=== PATIENT | male | born 1995 | race Caucasian/White ===

== ENCOUNTER 2024-12-24 13:31 | Outpatient (CLI) | payer OTHER, SELFPAY ==
--- OUTSIDE RECORDS SUMMARY | 2024-03-17 11:30 | XMS_ITS ---
Author Organization [employer] [facility] [place] ([address]) Address [address] [place] [address] Care Team Providers Care Waste And Batting Waste Chopper Name Role Phone Igor Veloz MD Primary Care Provider Davi Downing [phone] REASON FOR VISIT [facility]One PFT Social History Sex Assigned At : Social History Observation Description Sex Assigned At Male Encounters Encounter Location Date Provider Diagnosis [facility] [address] [place] [address] 03/17/2024 Davi Mccormick Cough, unspecified R05.9 ; Shortness of breath R06.02 ; Wheezing R06.2 and Abnormal results of pulmonary function studies R94.2 Assessments Encounter Date Diagnosis (ICD Code) Assessment Notes Treatment Notes Treatment Clinical Notes Section Notes 03/17/2024 Cough, unspecified (ICD-10 - R05.9) 03/17/2024 Shortness of breath (ICD-10 - R06.02) 03/17/2024 Wheezing (ICD-10 - R06.2) 03/17/2024 Abnormal results of pulmonary function studies (ICD-10 - R94.2) Plan Of Treatment Next Appt Details Follow Up: 6-12 Months unles s otherwise directed by provider, Reason: [facility] PFT Provider Name:Leatha mosqueda, 12/25/2024 01:45:00 PM, [address] [place], [address], Progress Notes * Sonido LANDAVERDEDOB:[birth year] (29 yo M)Acc No.[id number]:03/17/2024 PFT Patient: Sonido THORNTON Provider: Hemant Mccormick MD :1995 A ge:29 Y S ex:Male Date:03/17/2024 Address:[address] [place], [place] [id number] Pcp:Igor Veloz MD Subjective: * Chief Complaints: * 1 . [facility] PFT. * Medical History: Objective: * Vitals: Assessment: * Assessment: 1. C ough, unspecified - R05.9 (Primary) 2 . S hortness of breath - R06.02? 3. W heezing - R06.2 4 . A bnormal results of pulmonary function studies - R94.2 Plan: * Treatment: * Follow Up: 6 -12 Months unless otherwise directed by provider (Reason: [facility]One PFT) * Billing Information: * Visit Code: * Procedure Codes: 53899 RESPIRATORY FLOW VOLUME LOOP. 33621 SPIROMETRY CHALLENGE. 94211 C02/MEMBANE DIFFUSE CAPACITY. 81524 PULM FUNCT TST PLETHYSMOGRAP. 47295 PULMONARY STRESS TESTING. A4617 Mouthpiece. * Electronic signature of Narciso Mccormick MD, FAAAAI on 12/25/2024 at 12:50 PM TUB MENDER Sign off status: Pending * Provider: Hemant Mccormick MD Date: 0 03/17/2024 Generated for Josr garcia/Cherri/eTransmitting on: 1 02/25/2024 12:50 PM TUB MENDER
--- OUTSIDE RECORDS SUMMARY | 2024-04-02 11:30 | XMS_ITS ---
Author Organization [employer] [facility] [place] ([address]) Address [address] [place] [address] Care Team Providers Care Health Nurse Name Role Phone Igor Veloz MD Primary Care Provider Unav[address]i [address] Unavailable [phone] Rodriguez Coto Unavailable [phone] REASON FOR VISIT Asthma follow-up. Noted some SOB with with workout. Using ZHANG prior to Taekwondo ACT = 25. Previously switched to Breztri with minimal difference and back on Trelelgy. ACT = 25, ARC follow-up, only taking meds prn with minimal symptoms since completing SCIT Medications Medication SIG (Take, Route, Frequency, Duration) Notes Start Date End Date Status Trelegy Ellipta 100-62.5-25 MCG/ACT 1 puff Inhalation Once a day; Duration: 90 days Active FLUTICASONE NASAL 50 mcg/inh 1 spray(s) intranasally BID Active NASAL WASHES N/A as directed intranasally as needed Active Nystatin 466486 UNIT/ML 4 ml orally 4 times a day; Duration: 7 day(s) 2021 Not-Taking PROAIR HFA CFC free 90 mcg/inh 2 puff(s) inhaled QID, prn Active Fluticasone Propionate 50 MCG/ACT 1 spray(s) intranasally BID Active Breztri Aerosphere 160 MCG-4.8 MCG-9 MCG/INH 2 PUFF(S) INHALED 2 TIMES A DAY; Duration: 30 DAYS *Please review and pick correct strength-formulat ion from EcoIntensean options. If intended option is not shown, discontinue and re-order from Quick Search* 08/01/2023 Not-Taking Trelegy Ellipta 100-62.5-25 MCG/ACT INHALE 1 PUFF ONCE DAILY FOR 90 DAYS; Duration: 90 Active Trelegy Ellipta 200 MCG-62.5 MCG-25 MCG/INH 1 PUFF(S) INHALED ONCE A DAY; Duration: 90 DAYS *Please review and pick correct strength-formulat ion from EcoIntensean options. If intended option is not shown, discontinue and re-order from Quick Search* Not-Taking Advair Diskus 500 MCG-50 MCG INHALE 1 DOSE BY MOUTH TWICE DAILY; Duration: 90 *Please review and pick correct strength-formulat ion from [employer]atch options. If intended option is not shown, discontinue and re-order from Quick Search* Not-Taking Albuterol Sulfate HFA 108 (90 Base) MCG/ACT 1 puff as needed Inhalation every 4 hrs Active Social History Sex Assigned At : Social History Observation Description Sex Assigned At Male Encounters Encounter Location Date Provider Diagnosis [address] [address] 04/02/2024 Rodriguez Coto Moderate persistent asthma, uncomplicated J45.40 ; Allergic rhinitis due to pollen J30.1 ; Other chronic allergic conjunctivitis H10.45 ; Allergic rhinitis due to animal (cat) (dog) hair and dander J30.81 and Other allergic rhinitis J30.89 Assessments Encounter Date Diagnosis (ICD Code) Assessment Notes Treatment Notes Treatment Clinical Notes Section Notes 04/02/2024 Moderate persistent asthma, uncomplicated (ICD-10 - J45.40) - Continues doing well on high-dose Trelegy. Unsure if perceives a difference but has no complaints. - Previously screened for biologics with normal IgE and AEC, excluding him from most biologic treatment options. - Subjectively has been doing fine. - Given continued restricted seen on spirometry and clear difference between subjective and objective date, previously referred to Dr. Cleveland but has yet to go. Given this, will plan to obtain baseline PFT. Consider pulm evalaution based on results If symptoms worsen, consider Tezspire - Encouraged ZHANG use for his cough and dyspnea prn. - using ZHANG prior to Taekwondo with benefit 04/02/2024 Allergic rhinitis due to pollen (ICD-10 - J30.1) Sonido clearly suffers from atopic disease based upon history and our previous skin testing, and he is currently doing well on our recommended treatment plan. Continue current medication regimen, prn nasal washes and allergen-specifi c avoidance measures. He completed 4+ years of monthly maintenance SCIT in April 2017. Consider restarting SCIT if symptoms worsen. Consdier increasing Flonase to BID if symptoms increase 04/02/2024 Other chronic allergic conjunctivitis (ICD-10 - H10.45) Continue allergen avoidance measures and oral/nasal medications. Also consider adding intraocular antihistamine/ma st cell stabilizer, PRN for refractory symptoms 04/02/2024 Allergic rhinitis due to animal (cat) (dog) hair and dander (ICD-10 - J30.81) Continue avoidance and meds 04/02/2024 Other allergic rhinitis (ICD-10 - J30.89) Continue avoidance and meds 04/02/2024 Other Plan Of Treatment Medication Medication Name Sig Start Date Stop Date Notes Trelegy Ellipta 100-62.5-25 MCG/ACT 1 puff Inhalation Once a day; Duration: 90 days FLUTICASONE NASAL 50 mcg/inh 1 spray(s) intranasally BID NASAL WASHES N/A as directed intranas ally as needed PROAIR HFA CFC free 90 mcg/inh 2 puff(s) inhaled QID, prn Treatment Notes Assessment Notes Moderate persistent asthma, uncomplicate d - Continues doing well on high-dose Trelegy. Unsure if perceives a difference but has no complaints. - Previously screened for biologics with normal IgE and AEC, excluding him from most biologic treatment options. - Subjectively has been doing fine. - Given continued restricted seen on spirometry and clear difference between subjective and objective date, previously referred to Dr. Cleveland but has yet to go. Given this, will plan to obtain baseline PFT. Consider pulm evalaution based on results If symptoms worsen, consider Tezspire - Encouraged ZHANG use for his cough and dyspnea prn. - using ZHANG prior to Taekwondo with benefit Allergic rhinitis due to pollen Sonido cl early suffers from atopic disease based upon history and our previous skin testing, and he is currently doing well on our recommended treatment plan. Continue current medication regimen, prn nasal washes and allergen-specific avoidance measures. He completed 4+ years of monthly maintenance SCIT in April 2017. Consider restarting SCIT if symptoms worsen. Consdier increasing Flonase to BID if symptoms increase Other chronic allergic conjunctivitis Continue allergen avoidance measures and oral/nasal medications. Also consider adding intraocular antihistamine/mast cell stabilizer, PRN for refractory symptoms Allergic rhinitis due to ani mal (cat) (dog) hair and dander Continue avoidance and meds Other allergic rhinitis Continue avoidan ce and meds Next Appt Details Follow Up: 4 Months, Reason: Evaluation and Management Provider Name:Leatha mosqueda, 12/25/2024 01:45:00 PM, [address] [place] [address], [address], Progress Notes * Sonido LANDAVERDEDOB:[birth year] (29 yo M)Acc No.[id number]:04/02/2024 Asthma F/U Patient: Tere Sonido JOSEPH Provider: Rossy Coto PA-C :1995 A ge:29 Y S ex:Male Date:04/02/2024 [facility] Pcp:Igor Veloz MD Subjective: * Chief Complaints: * 1 . Asthma follow-up. Noted some SOB with with workout. Using ZHANG prior to Taekwondo ACT = 25. Previously switched to Breztri with minimal difference and back on Trelelgy. ACT = 25. 2. ARC follow-up, only taking meds prn with minimal symptoms since completing SCIT. * HPI: A sta follow-up: Asthma Survey - Classification A sthma severity classification M oderate Persistent * Introduction: HPI: Caridad Landaverde, a 28-year-old male with allergies and asthma who returns today for interval evaluation and management. He is with his fiance for today's visit. His allergy symptoms remain well-controlled on no daily meds, just prn. Still using Flonase consistently. He finished up allergen immunotherapy in April 2017 after running out of allergy serum. He had reached his monthly maintenance program back in November 2012. We switched from Trelegy to Breztri previously yoseph quiles continued restriction seen on spirometry to asses benefit. He reprots no noted difference since doing so. Now back on Trelegy with ACT = 25. No interval lower airway issues noted. Only using ZHANG prior to [facility]. Previosuly refurred to pulm but never went. Otherwise he reports he is doing well. Today, he reports no fevers, chills, night sweats or other constitutional symptoms. * ROS: A LLERGY: Positive p er the HPI and history, otherwise unremarkable.? S PECIAL SENSES: Positve for i tching eyes. C ONSTITUTIONAL: Positive for i tching. E NT: Positive p er the HPI and history, otherwise unremarkable.? R ESPIRATORY: Positive for p er the HPI and history, otherwise unremarkable. O PHTHALMOLOGY: Positive for p er the HPI and history, otherwise unremarkable. E NDOCRINOLOGY: Positive for n one. C ARDIOLOGY: Positive for n one. G ASTROENTEROLOGY: Positive for c onstipation. U ROLOGY: Positive for f requent urination, voiding dysfunction. D ERMATOLOGY: Positive for n one. N EUROLOGY: Positive for d ifficulty concentrating. H EMATOLOGY/LYMPH: Positive for n one. M USCULOSKELETAL: Positive for j oint pain, low back pain. P SYCHOLOGY: Positive for n one. M FRANNIE REPRODUCTIVE: Positive for n one. A ll other review of systems per the HPI and history, otherwise unremarkable. * Medical History: * Medications: T aking PROAIR HFA CFC free 90 mcg/inh aerosol 2 puff(s) inhaled QID, prn , Taking FLUTICASONE NASAL 50 mcg/inh spray 1 spray(s) intranasally BID , Taking NASAL WASHES N/A 1 quart of sterilized tap water or distilled water, 1 tsp NaCl, 1 pinch of baking soda as directed intranasally as needed , Taking Trelegy Ellipta 100-62.5-25 MCG/ACT Aerosol Powder Breath Activated 1 puff Inhalation Once a day , Taking Albuterol Sulfate HFA 108 (90 Base) MCG/ACT Aerosol Solution 1 puff as needed Inhalation every 4 hrs , Taking Fluticasone Propionate 50 MCG/ACT Suspension 1 spray(s) intranasally BID , Taking Trelegy Ellipta 100-62.5-25 MCG/ACT Aerosol Powder Breath Activated INHALE 1 PUFF ONCE DAILY FOR 90 DAYS , Not-Taking/PRN Breztri Aerosphere 160 MCG-4.8 MCG-9 MCG/INH AEROSOL 2 PUFF(S) INHALED 2 TIMES A DAY , Notes to Pharmacist: *Please review and pick correct strength-formulation from EcoIntensean options. If intended option is not shown, discontinue and re-order from Quick Search*, Not-Taking/PRN Trelegy Ellipta 200 MCG-62.5 MCG-25 MCG/INH POWDER 1 PUFF(S) INHALED ONCE A DAY , Notes to Pharmacist: *Please review and pick correct strength-formulation from EcoIntensean options. If intended option is not shown, discontinue and re-order from Quick Search*, Not-Taking/PRN Advair Diskus 500 MCG-50 MCG POWDER INHALE 1 DOSE BY MOUTH TWICE DAILY , Notes to Pharmacist: *Please review and pick correct strength-formulation from EcoIntensean options. If intended option is not shown, discontinue and re-order from Quick Search*, Not-Taking/PRN Nystatin 057708 UNIT/ML Suspension 4 ml orally 4 times a day Objective: * Vitals: * Examination: G eneral examination: General appearance: p leasant, well-developed, well-nourished, male, in no apparent distress, speaking in full sentences, with age appropriate activity. HEENT: p upils equal, round, and reactive to light and accommodation, conjunctiva are normal bilaterally, no tenderness to palpation of the sinuses, TMs without evidence of acute infection, chronic TM scarring is present, turbinates 1+ swollen and pale inferiorly bilaterally, no polyps noted, no septal perforation, posterior oropharynx is clear without exudates, tonsils are surgically absent, no tongue swelling, and uvula is midline. Oral cavity: n ormal. Neck, thyroid : s upple, non-tender, no anterior cervical lymphadenopathy. Breasts : n ot performed. Heart: r egular rhythm, S1-S2, no murmurs, no rubs, no gallops. Lungs: c lear to auscultation and percussion in all lung calix, no wheezes or crackles. Abdomen: s oft, NT/ND, normal active bowel sounds. Neurologic exam: u nremarkable. Skin: n ormal, no rash, dermatographism, urticaria, angioedema. Peripheral pulses: n ormal (2+) bilaterally. Back: n ormal. Extremities: n ormal ROM, no clubbing, no cyanosis, no edema. Genitalia: n ot performed. Assessment: * Assessment: 1. M oderate persistent asthma, uncomplicated - J45.40 (Primary) 2 . A llergic rhinitis due to pollen - J30.1 3 . O ther chronic allergic conjunctivitis - H10.45 4 . A llergic rhinitis due to animal (cat) (dog) hair and dander - J30.81 5. O ther allergic rhinitis - J30.89 Plan: * Treatment: 2. A llergic rhinitis due to pollen Increase FLUTICASONE NASAL spray, 50 mcg/inh, 1 spray(s), intranasally, BID; C ontinue NASAL WASHES 1 quart of sterilized tap water or distilled water, 1 tsp NaCl, 1 pinch of baking soda, N/A, as directed, intranasally, as needed. Notes:Sonido clearly suffers from atopic disease based upon history and our previous skin testing, and he is currently doing well on our recommended treatment plan. Continue current medication regimen, prn nasal washes and allergen-specific avoidance measures. He completed 4+ years of monthly maintenance SCIT in April 2017. Consider restarting SCIT if symptoms worsen. Consdier increasing Flonase to BID if symptoms increase 3. O ther chronic allergic conjunctivitis Notes:Continue allergen avoidance measures and oral/nasal medications. Also consider adding intraocular antihistamine/mast cell stabilizer, PRN for refractory symptoms 4. A llergic rhinitis due to animal (cat) (dog) hair and dander Notes:Continue avoidance and meds 5. O ther allergic rhinitis Notes:Continue avoidance and meds * Procedure Codes: 9 6160 PT-FOCUSED HLTH RISK ASSMT, G8427 DOC MEDS VERIFIED W/[place], [address] Derrick Coto - Incident-to, G9521 TOT # ED VSTS & IP HOSP<2 PAST 12 M * Preventive Medicine: Counseling: D iet a s tolerated. E xercise C ontinue activity as usual. M edication instruction: W atch for side effects of prescribed medications, [place] teeth or rinse out mouth after the use of oral, inhaled steroids to prevent oral thrush, Use 2 puffs of ZHANG with spacer prior to exercise and environmental exposures known to cause wheezing. E ducation: O ur staff spent an additional 30 minutes in direct contact with the patient educating them on their current diagnoses and proper treatment and prevention of symptoms and the proper use of medications, ASTHMA EDUCATION:, Our staff discussed pulmonary function testing and results with the patient/family, Our staff updated the patient's asthma action plan. E ducation 2: O ur staff discussed the appropriate allergen avoidance measures and medication utilization including upper airway hygiene with nasal washes given the patient's clinical status and diagnoses. P atient education material sent to portal? Y es C are goal follow up plan BMI management provided Y es Above Normal BMI Follow-up D ietary management education, guidance, and counseling B P Management: FIRST HYPERTENSIVE BP READING FOLLOW-UP PLAN: F ollow-up 1 month REFERRAL TO ALTERNATIVE / PRIMARY CARE PROVIDER: John sharma to general practitioner * Follow Up: 4 Months (Reason: Evaluation and Management) * Billing Information: * Visit Code: 23826 Office Visit, Est Pt., Level 4. Modifiers: 25 * Procedure Codes: 12556 PT-FOCUSED HLTH RISK ASSMT. G8427 DOC MEDS VERIFIED W/[place]. [address] Derrick Coto - Incident-to. G9521 TOT # ED VSTS & IP HOSP<2 PAST 12 M. * Electronic signature of Derrick Coto PA-C on 12/25/2024 at 12:51 PM DRY TRANSFER MAN Sign off status: Pending * Provider: Rossy Coto PA-C Date: 0 04/02/2024 Generated for Josr garcia/Cherri/eTransmitting on: 1 02/25/2024 12:51 PM DRY TRANSFER MAN History and Physical Notes * HPI (History of Present Illness) Category Sub-Category Detail Notes Category Not es *Introduction HPI: Sonido Landaverde, a 28-year-old male with allergies and asthma who returns today for interval evaluation and management. He is with his fiance for today's visit. His allergy symptoms remain well-controlled on no daily meds, just prn. Still using Flonase consistently. He finished up allergen immunotherapy in April 2017 after running out of allergy serum. He had reached his monthly maintenance program back in November 2012. We switched from Trelegy to Breztri previously given continued restriction seen on spirometry to asses benefit. He reprots no noted difference since doing so. Now back on Trelegy with ACT = 25. No interval lower airway issues noted. Only using ZHANG prior to Taekwondo. Previosuly refurred to pulm but never went. Otherwise he reports he is doing well. Today, he reports no fevers, chills, night sweats or other constitutional symptoms Asthma follow-up Asthma Survey - Classification Coughing, wheezing, shortness of breath or tightness in the chest during the day: Twice a week or less Asthma severity classification: Moderate Persistent Examination Category Sub-Category Detail Notes Category Not es General examination HEENT: pupils equal , round, and reactive to light and accommodation, conjunctiva are normal bilaterally, no tenderness to palpation of the sinuses, TMs without evidence of acute infection, chronic TM scarring is present, turbinates 1+ swollen and pale inferiorly bilaterally, no polyps noted, no septal perforation, posterior oropharynx is clear without exudates, tonsils are surgically absent, no tongue swelling, and uvula is midline Neck, thyroid : supple, non-tender, no anterior cervical lymphadenopathy Heart: regular rhythm, S1-S 2, no murmurs, no rubs, no gallops Lungs: clear to auscultatio n and percussion in all lung calix, no wheezes or crackles Abdomen: soft, NT/ND, normal active bowel sounds Extremities: normal ROM, no clubb ing, no cyanosis, no edema General appearance: pleasant, well-devel oped, well-nourished, male, in no apparent distress, speaking in full sentences, with age appropriate activity Skin: normal, no rash, carlos matographism, urticaria, angioedema Neurologic exam: unremarkable Oral cavity: normal Breasts : not performed Peripheral pulses: normal (2+) bilatera lly Back: normal Genitalia: not performed
--- OUTSIDE RECORDS SUMMARY | 2024-04-21 11:30 | XMS_ITS ---
Author Organization [employer] [facility] [employer] [place] ([address]) Address [address] [place] [address] Care Team Providers Care Aircraft Pneudraulic Systems Mechanic Name Role Phone Igor Veloz MD Primary Care Provider Davi Downing [phone] REASON FOR VISIT PulmOne PFT Social History Sex Assigned At : Social History Observation Description Sex Assigned At Male Encounters Encounter Location Date Provider Diagnosis [facility] [address] [place] [address] 04/21/2024 Davi Mccormick Cough, unspecified R05.9 ; Shortness of breath R06.02 ; Wheezing R06.2 and Abnormal results of pulmonary function studies R94.2 Assessments Encounter Date Diagnosis (ICD Code) Assessment Notes Treatment Notes Treatment Clinical Notes Section Notes 04/21/2024 Cough, unspecified (ICD-10 - R05.9) 04/21/2024 Shortness of breath (ICD-10 - R06.02) 04/21/2024 Wheezing (ICD-10 - R06.2) 04/21/2024 Abnormal results of pulmonary function studies (ICD-10 - R94.2) Plan Of Treatment Next Appt Details Follow Up: 6-12 Months unles s otherwise directed by provider, Reason: PulmOne PFT Provider Name:Leatha mosqueda, 12/25/2024 01:45:00 PM, [address] [place], [address], Progress Notes * Sonido LANDAVERDEDOB:[birth year] (29 yo M)Acc No.[id number]:04/21/2024 PFT Patient: Sonido THORNTON Provider: Hemant Mccormick MD :1995 A ge:29 Y S ex:Male Date:04/21/2024 Address:[address] [place], [place] [id number] Pcp:Igor Veloz MD Subjective: * Chief Complaints: [...] Information: * Visit Code: * Procedure Codes: 69965 RESPIRATORY FLOW VOLUME LOOP. 74883 SPIROMETRY CHALLENGE. 28523 C02/MEMBANE DIFFUSE CAPACITY. 68764 PULM FUNCT TST PLETHYSMOGRAP. 16034 PULMONARY STRESS TESTING. A4617 Mouthpiece. * Electronic signature of Narciso Mccormick MD, FAAAAI on 12/25/2024 at 12:51 PM CUSTODIAL WORKER Sign off status: Pending * Provider: Hemant Mccormick MD Date: 0 04/21/2024 Generated for Josr garcia/Cherri/eTransmitting on: 1 02/25/2024 12:51 PM CUSTODIAL WORKER
--- OUTSIDE RECORDS SUMMARY | 2024-05-05 11:30 | XMS_ITS ---
Author Organization [employer] [facility] [place] ([address]) Address [address] [place] [address] Care Team Providers Care Supervisor Brine Name Role Phone Igor Veloz MD Primary Care Provider Davi Downing [phone] REASON FOR VISIT PulmOne PFT Social History Sex Assigned At : Social History Observation Description Sex Assigned At Male Encounters Encounter Location Date Provider Diagnosis [facility] [address] [place] [address] 05/05/2024 Daiv Mccormick Cough, unspecified R05.9 ; Shortness of breath R06.02 ; Wheezing R06.2 and Abnormal results of pulmonary function studies R94.2 Assessments Encounter Date Diagnosis (ICD Code) Assessment Notes Treatment Notes Treatment Clinical Notes Section Notes 05/05/2024 Cough, unspecified (ICD-10 - R05.9) 05/05/2024 Shortness of breath (ICD-10 - R06.02) 05/05/2024 Wheezing (ICD-10 - R06.2) 05/05/2024 Abnormal results of pulmonary function studies (ICD-10 - R94.2) Plan Of Treatment Next Appt Details Follow Up: 6-12 Months unles s otherwise directed by provider, Reason: [facility]One PFT Provider Name:Leatha mosqueda, 12/25/2024 01:45:00 PM, [address] [place], [address], Progress Notes * Sonido LANDAVERDEDOB:[birth year] (29 yo M)Acc No.[id number]:05/05/2024 PFT Patient: Sonido THORNTON Provider: Hemant Mccormick MD :1995 A ge:29 Y S ex:Male Date:05/05/2024 Address:[address] [place], [place] [id number] Pcp:Igor Veloz MD Subjective: * Chief Complaints: [...] Information: * Visit Code: * Procedure Codes: 12750 RESPIRATORY FLOW VOLUME LOOP. 29806 SPIROMETRY CHALLENGE. 42374 C02/MEMBANE DIFFUSE CAPACITY. 32274 PULM FUNCT TST PLETHYSMOGRAP. 25564 PULMONARY STRESS TESTING. A4617 Mouthpiece. * Electronic signature of Narciso Mccormick MD, FAAAAI on 12/25/2024 at 12:51 PM MANAGER DATA Sign off status: Pending * Provider: Hemant Mccormick MD Date: 0 05/05/2024 Generated for Josr garcia/Cherri/eTransmitting on: 1 02/25/2024 12:51 PM MANAGER DATA
--- OUTSIDE RECORDS SUMMARY | 2024-05-14 11:30 | XMS_ITS ---
Author Organization [employer] [facility] [place] ([address]) Address [address] [place] [address] Care Team Providers Care Mortgage Counselor Name Role Phone Igor Veloz MD Primary Care Provider UnavailDavi Way Unavailable [phone] Rodriguez Coto Unavailable [phone] REASON FOR VISIT Asthma follow-up. Noted some SOB with with workout. Using ZHANG prior to Taekwondo ACT = 25. Previously switched to Breztri with minimal difference and back on Trelelgy. ACT = 25, ARC follow-up, only taking meds prn with minimal symptoms since completing SCIT Medications Medication SIG (Take, Route, Frequency, Duration) Notes Start Date End Date Status NASAL WASHES N/A as directed intranasally as needed Active Trelegy Ellipta 100-62.5-25 MCG/ACT 1 puff Inhalation Once a day; Duration: 90 days Active Albuterol Sulfate HFA 108 (90 Base) MCG/ACT 1 puff as needed Inhalation every 4 hrs Active Fluticasone Propionate 50 MCG/ACT 1 spray(s) intranasally BID Active Breztri Aerosphere 160 MCG-4.8 MCG-9 MCG/INH 2 PUFF(S) INHALED 2 TIMES A DAY; Duration: 30 DAYS *Please review and pick correct strength-formulat ion from Medispan options. If intended option is not shown, discontinue and re-order from Quick Search* 08/01/2023 Not-Taking Trelegy Ellipta 200 MCG-62.5 MCG-25 MCG/INH 1 PUFF(S) INHALED ONCE A DAY; Duration: 90 DAYS *Please review and pick correct strength-formulat ion from Transperaan options. If intended option is not shown, discontinue and re-order from Quick Search* Not-Taking Advair Diskus 500 MCG-50 MCG INHALE 1 DOSE BY MOUTH TWICE DAILY; Duration: 90 *Please review and pick correct strength-formulat ion from Transperaan options. If intended option is not shown, discontinue and re-order from Quick Search* Not-Taking PROAIR HFA CFC free 90 mcg/inh 2 puff(s) inhaled QID, prn Active FLUTICASONE NASAL 50 mcg/inh 1 spray(s) intranasally BID Active Nystatin 943297 UNIT/ML 4 ml orally 4 times a day; Duration: 7 day(s) 2021 Not-Taking Trelegy Ellipta 100-62.5-25 MCG/ACT INHALE 1 PUFF ONCE DAILY FOR 90 DAYS; Duration: 90 Active Social History Sex Assigned At : Social History Observation Description Sex Assigned At Male Encounters Encounter Location Date Provider Diagnosis [address] [address] 05/14/2024 Rodriguez Coto Moderate persistent asthma, uncomplicated J45.40 ; Allergic rhinitis due to pollen J30.1 ; Other chronic allergic conjunctivitis H10.45 ; Allergic rhinitis due to animal (cat) (dog) hair and dander J30.81 and Other allergic rhinitis J30.89 Assessments Encounter Date Diagnosis (ICD Code) Assessment Notes Treatment Notes Treatment Clinical Notes Section Notes 05/14/2024 Moderate persistent asthma, uncomplicated (ICD-10 - J45.40) [...] Given this, will plan to obtain baseline PFT; scheduled for next week. Consider pulm evalaution based on results If symptoms worsen, consider Tezspire - Encouraged ZHANG use for his cough and dyspnea prn. - Continue using ZHANG prior to Taekwondo with benefit 05/14/2024 Allergic rhinitis due to pollen (ICD-10 - [...] increasing Flonase to BID if symptoms increase 05/14/2024 Other chronic allergic conjunctivitis (ICD-10 - H10.45) Continue allergen avoidance measures and oral/nasal medications. Also consider adding intraocular antihistamine/ma st cell stabilizer, PRN for refractory symptoms 05/14/2024 Allergic rhinitis due to animal (cat) (dog) hair and dander (ICD-10 - J30.81) Continue avoidance and meds 05/14/2024 Other allergic rhinitis (ICD-10 - J30.89) Continue avoidance and meds 05/14/2024 Other Plan Of Treatment Medication Medication Name Sig Start Date Stop Date Notes NASAL WASHES N/A as directed intranas ally as needed Trelegy Ellipta 100-62.5-25 MCG/ACT 1 puff Inhalation Once a day; Duration: 90 days PROAIR HFA CFC free 90 mcg/inh 2 puff(s) inhaled QID, prn FLUTICASONE NASAL 50 mcg/inh 1 spray(s) intranasally BID Treatment Notes Assessment Notes Moderate persistent asthma, [...] Given this, will plan to obtain baseline PFT; scheduled for next week. Consider pulm evalaution based on results If symptoms worsen, consider Tezspire - Encouraged ZHANG use for his cough and dyspnea prn. - Continue using ZHANG prior to Taekwondo with benefit [...] Management Provider Name:Leatha mosqueda, 12/25/2024 01:45:00 PM, [address] [place] [address], [address], Progress Notes * Sonido LANDAVERDEDOB:[birth year] (29 yo M)Acc No.[id number]:05/14/2024 Asthma F/U Patient: Sonido THORNTON Provider: Rossy Coto PA-C :1995 A ge:29 Y S ex:Male Date:05/14/2024 Address:[address] [place], [place] [address] Pcp:Igor Veloz MD Subjective: * Chief Complaints: [...] issues noted. Only using ZHANG prior to T rafael. Previosuly refurred to pulm but never went. [...] * Medical History: * Medications: T aking Albuterol Sulfate HFA 108 (90 Base) MCG/ACT Aerosol Solution 1 puff as needed Inhalation every 4 hrs , Taking Fluticasone Propionate 50 MCG/ACT Suspension 1 spray(s) intranasally BID , Taking Trelegy Ellipta 100-62.5-25 MCG/ACT Aerosol Powder Breath Activated INHALE 1 PUFF ONCE DAILY FOR 90 DAYS , Taking PROAIR HFA CFC free 90 mcg/inh aerosol [...] 1 puff Inhalation Once a day , Not-Taking/PRN Breztri Aerosphere 160 MCG-4.8 MCG-9 MCG/INH AEROSOL 2 PUFF(S) INHALED 2 TIMES A DAY , Notes to Pharmacist: *Please review and pick correct strength-formulation from Transperaan options. If intended option is not shown, discontinue and re-order from Quick Search*, Not-Taking/PRN Trelegy Ellipta 200 MCG-62.5 MCG-25 MCG/INH POWDER 1 PUFF(S) INHALED ONCE A DAY , Notes to Pharmacist: *Please review and pick correct strength-formulation from Transperaan options. If intended option is not shown, discontinue and re-order from Quick Search*, Not-Taking/PRN Advair Diskus 500 MCG-50 MCG POWDER INHALE 1 DOSE BY MOUTH TWICE DAILY , Notes to Pharmacist: *Please review and pick correct strength-formulation from Transperaan options. If intended option is not shown, discontinue and re-order from Quick Search*, Not-Taking/PRN Nystatin 705796 UNIT/ML Suspension 4 ml orally 4 times [...] G8427 DOC MEDS VERIFIED W/[place], [address] Derrick Coto - Incident-to, G9521 TOT # ED VSTS & IP HOSP<2 PAST 12 M * Preventive Medicine: Counseling: D iet a s tolerated. E xercise C ontinue activity as usual. M edication instruction: W atch for side effects of prescribed medications, Mallard teeth or rinse out mouth after the [...] Management) * Billing Information: * Visit Code: 24280 Office Visit, Est Pt., Level 4. Modifiers: 25 * Procedure Codes: 93624 PT-FOCUSED HLTH RISK ASSMT. G8427 DOC MEDS VERIFIED W/[place]. [address] Derrick Coto - Incident-to. G9521 TOT # ED VSTS & IP HOSP<2 PAST 12 M. * Electronic signature of Derrick Coto PA-C on 12/25/2024 at 12:51 PM SILK SCREEN PROCESSOR Sign off status: Pending * Provider: Rossy Coto PA-C Date: 0 05/14/2024 Generated for Josr garcia/Cherri/Alejandro on: 1 02/25/2024 12:51 PM SILK SCREEN PROCESSOR History and Physical Notes * HPI (History [...]
--- OUTSIDE RECORDS SUMMARY | 2024-05-19 11:30 | XMS_ITS ---
Author Organization [facility] [place] ([address]) Address [address] [place] [address] Care Team Providers Care Shot Dropper Name Role Phone Igor Veloz MD Primary Care Provider Davi Downing Unavailable [phone] REASON FOR VISIT [facility]mOne PFT Medications Medication SIG (Take, Route, Frequency, Duration) Notes Start Date End Date Status Trelegy Ellipta 100-62.5-25 MCG/ACT 1 puff Inhalation Once a day; Duration: 90 days Active FLUTICASONE NASAL 50 mcg/inh 1 spray(s) intranasally BID Active NASAL WASHES N/A as directed intranasally as needed Active Nystatin 806469 UNIT/ML 4 ml orally 4 times a day; Duration: 7 day(s) 2021 Not-Taking PROAIR HFA CFC free 90 mcg/inh 2 puff(s) inhaled QID, prn Active Trelegy Ellipta 200 MCG-62.5 MCG-25 MCG/INH 1 PUFF(S) INHALED ONCE A DAY; Duration: 90 DAYS *Please review and pick correct strength-formulat ion from SparkWordsan options. If intended option is not shown, discontinue and re-order from Quick Search* Not-Taking Advair Diskus 500 MCG-50 MCG INHALE 1 DOSE BY MOUTH TWICE DAILY; Duration: 90 *Please review and pick correct strength-formulat ion from SparkWordsan options. If intended option is not shown, discontinue and re-order from Quick Search* Not-Taking Trelegy Ellipta 100-62.5-25 MCG/ACT INHALE 1 PUFF ONCE DAILY FOR 90 DAYS; Duration: 90 Active Fluticasone Propionate 50 MCG/ACT 1 spray(s) intranasally BID Active Breztri Aerosphere 160 MCG-4.8 MCG-9 MCG/INH 2 PUFF(S) INHALED 2 TIMES A DAY; Duration: 30 DAYS *Please review and pick correct strength-formulat ion from [employer] Pharmaceutical[employer]pan options. If intended option is not shown, discontinue and re-order from Quick Search* 08/01/2023 Not-Taking Albuterol Sulfate HFA 108 (90 Base) MCG/ACT 1 puff as needed Inhalation every 4 hrs Active Social History Sex Assigned At : Social History Observation Description Sex Assigned At Male Encounters Encounter Location Date Provider Diagnosis [facility] [address] [place] [address] 05/19/2024 Davi Mccormick Cough, unspecified R05.9 ; Shortness of breath R06.02 ; Wheezing R06.2 and Abnormal results of pulmonary function studies R94.2 Assessments Encounter Date Diagnosis (ICD Code) Assessment Notes Treatment Notes Treatment Clinical Notes Section Notes 05/19/2024 Cough, unspecified (ICD-10 - R05.9) 05/19/2024 Shortness of breath (ICD-10 - R06.02) 05/19/2024 Wheezing (ICD-10 - R06.2) 05/19/2024 Abnormal results of pulmonary function studies (ICD-10 - R94.2) Plan Of Treatment Next Appt Details Follow Up: 6-12 Months unles s otherwise directed by provider, Reason: PulmOne PFT Provider Name:Leatha mosqueda, 12/25/2024 01:45:00 PM, [address] [place], [address], Progress Notes * Sonido LANDAVERDEDOB:[birth year] (29 yo M)Acc No.[id number]:05/19/2024 PFT Patient: Sonido TOHRNTON Provider: Hemant Mccormick MD :1995 A ge:29 Y S ex:Male Date:05/19/2024 Address:[facility] Pcp:Igor Veloz MD Subjective: * Chief Complaints: * 1 . PulmOne PFT. * Medical History: * Medications: T aking [...] *Please review and pick correct strength-formulation from Medispan options. If intended option is not shown, discontinue and re-order from Quick Search*, Not-Taking/PRN Trelegy Ellipta 200 MCG-62.5 MCG-25 MCG/INH POWDER 1 PUFF(S) INHALED ONCE A DAY , Notes to Pharmacist: *Please review and pick correct strength-formulation from Medispan options. If intended option is not shown, discontinue and re-order from Quick Search*, Not-Taking/PRN Advair Diskus 500 MCG-50 MCG POWDER INHALE 1 DOSE BY MOUTH TWICE DAILY , Notes to Pharmacist: *Please review and pick correct strength-formulation from Medispan options. If intended option is not shown, discontinue and re-order from Quick Search*, Not-Taking/PRN Nystatin 242873 UNIT/ML Suspension 4 ml orally 4 times a day Objective: * Vitals: Assessment: * Assessment: 1. C ough, unspecified - R05.9 (Primary) 2 . S hortness of breath - R06.02? 3. W heezing - R06.2 4 . A bnormal results of pulmonary function studies - R94.2 Plan: * Treatment: * Follow Up: 6 -12 Months unless otherwise directed by provider (Reason: PulmOne PFT) * Billing Information: * Visit Code: * Procedure Codes: 66903 RESPIRATORY FLOW VOLUME LOOP. 20354 SPIROMETRY CHALLENGE. 32125 C02/MEMBANE DIFFUSE CAPACITY. 17325 PULM FUNCT TST PLETHYSMOGRAP. 30066 PULMONARY STRESS TESTING. A4617 Mouthpiece. * Electronic signature of Patjaylin Mccormick MD, FAAAAI on 12/25/2024 at 12:51 PM LANDSCAPE ARCHITECT AND PLANNER Sign off status: Pending * Provider: Hemant Mccormick MD Date: 0 05/19/2024 Generated for Josr garcia/Cherri/Lesleeitting on: 1 02/25/2024 12:51 PM LANDSCAPE ARCHITECT AND PLANNER
--- OUTSIDE RECORDS SUMMARY | 2024-12-25 12:51 | XMS_ITS | Clinical Summary ---
Author Organization [facility] Address [address] [place] [address] Phone Care Team Providers Care Press Hand Name Role Phone Unavailable Primary Care Provider Unavailabl e Social History Tobacco Use Types Packs/Day Years Used Date Smoking Tobacco: Never Assessed Sex and Gender Information Value Date Recorded Sex Assigned at Not on file Legal Sex Male 10:34 PM CLIENT CARE REPRESENTATIVE Gender Identity Not on file Sexual Orientation Not on file Plan of Treatment Health Maintenance Due Date Last Done Comments Hepatitis C Virus (HCV) Screening 1995 Influenza Immunization (#1) 2024 10/0 03/2019, 01/06/2019, 01/17/2017, Additional history exists SARS-COV-2 Immunization ( season) 2024 06/08/2020, 05/18/2020 Respiratory Syncytial Virus (RSV) Immunization (Adult) (1 - 1-dose 75+ series) 01/19/2068 Hepatitis B Immunization Completed 994, 1995, 1995 Human Papillomavirus (HPV) Immunization Completed 06/29/2010, 11/24/2009, 09/24/2009 Pneumococcal Immunization Combined Aged Out 12/07/2016 No longer eligible based on patient's age to complete this topic DTaP/Tdap/Td Immunization Discontinued 2018, 09/14/2005, 08/20/1998, Additional history exists TdaP Immunization Completed 08/07/2018, 09/14/2005 Meningococcal Immunization (ACWY) Aged Out No longer eligible based on patient's age to complete this topic Rotavirus Immunization Aged Out No lo nger eligible based on patient's age to complete this topic
--- OUTSIDE RECORDS SUMMARY | 2024-12-25 12:51 | XMS_ITS | Clinical Summary ---
Author Organization [facility] Address [address] [place] [address] Care Team Providers Care Wagon Winder Name Role Phone Igor Veloz MD Primary Care Provider [phone] Allergies Active Allergy Reactions Criticality Noted Date Comments Albuterol Stomach upset Low 07/28/2018 Stomach/GI Upset Amoxicillin Amoxicillin-Pot Clavulanate Cefpodoxime Seizures,Unknown High 07/28/2018 Seizure Clavulanic Acid Rash Medium 07/28/2018 Rash Erythromycin Rash Medium 07/28/2018 Rash Erythromycin-Sulfisoxazole Rash Medium 3 Montelukast Unknown 03/16/2022 Sulfamethoxazole-Trimethop rim Sulfisoxazole Rash Medium 07/28/2018 Rash Medications albuterol HFA (ProAir HFA) 90 mcg/actuation inhaler 2 puff(s) Active ARIPiprazole (ABILIFY) 5 mg tablet Take 1 tablet (5 mg total) by mouth daily for 30 days 06/04/2022 Active atomoxetine (STRATTERA) 100 mg capsule TAKE 1 CAPSULE BY MOUTH ONCE DAILY IN THE MORNING FOR 30 DAYS 05/27/2022 Active escitalopram (LEXAPRO) 20 mg tablet Take 1 tablet (20 mg total) by mouth daily for 30 days 05/27/2022 Active fluticasone propion-salmete roL (Advair Diskus) 500-50 mcg/dose diskus inhaler INHALE 1 DOSE BY MOUTH TWICE DAILY Active fluticasone propionate (FLONASE) 50 mcg/actuation nasal spray daily Active fluticasone-ume clidin-vilanter (Trelegy Ellipta) 200-62.5-25 mcg inhaler daily Active metoprolol XL (TOPROL-XL) 50 mg extended release tablet TAKE 1 & 1/2 (ONE & ONE-HALF) TABLETS BY MOUTH ONCE DAILY IN THE EVENING 06/26/2022 Active nystatin 100,000 unit/mL suspension every 6 hours 2021 Active Active Problems Problem Noted Date Diagnosed Date Conductive hearing loss, bilateral 07/11/2022 Bilateral impacted cerumen 07/11/2022 Acute contact otitis externa of both ears 2022 Abnormal blood chemistry level 02/10/2011 Blood in urine 02/10/2011 Increased frequency of urination 12/01/2010 Urge incontinence of urine 12/01/2010 Surgical History Surgery Date Site/Laterality Comments MYRINGOTOMY W/ TUBES 1993 - 02/18/1994 EYE MUSCLE SURGERY 02/19/1994 - 02/18/1995 Left EYE MUSCLE SURGERY 02/19/1995 - 02/19/1996 Right TONSILLECTOMY/ADENOIDECTOMY 02/19/1995 - 02/19/1996 Bila teral Medical History Medical History Date Comments Ear problems Allergic rhinitis Asthma Anxiety Hypertension Depression Family History Medical History Relation Name Comments Cancer Maternal Grandfather Allergies Maternal Grandmother Cancer Maternal Grandmother Cancer Paternal Grandfather Cancer Paternal Grandmother Relation Name Status Comments Maternal Grandfather Maternal Grandmother Paternal Grandfather Paternal Grandmother Social History Tobacco Use Types Packs/Day Years Used Date Smoking Tobacco: Never Smokeless Tobacco: Never Tobacco Cessation:Counseling Given: Not Answered Sex and Gender Information Value Date Recorded Sex Assigned at Not on file Legal 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 Gender Identity Not on file Sexual Orientation Not on file Last Filed Vital Signs Vital Sign Reading Time Taken Comments Blood Pressure 128/86 07/28/2018 1:54 PM CDT Pulse 92 07/28/2018 1:54 PM CDT Temperature 36.8 C (98.3 F) 07/28/2018 1:54 PM CDT Respiratory Rate 17 07/16/2024 10:58 AM CDT Oxygen Saturation 97% 07/28/2018 1:54 PM CDT Inhaled Oxygen Concentration - - Weight 93 kg (205 lb) 07/16/2024 10:58 AM CDT Height 177.8 cm (5' 10) 07/16/2024 10:58 AM CDT Body Mass Index 29.41 07/16/2024 10:58 AM CDT Plan of Treatment Health Maintenance Due Date Last Done Comments Depression Screening 1993 Hepatitis C Screening 1993 Varicella Vaccines (2 of 2 - 2-dose childhood series) 04/12/1998 1998 Regular Well Visit/Exam 18-64 2011 Pneumococcal vaccine <65 (2 of 2 - PCV) 12/07/2017 12/07/2016 Covid-19 Vaccine (3 - 2024-2 6 season) 2024 06/08/2020, 05/18/2020 Influenza Vaccine (#1) 2024 , 11/13/2022, 11/21/2019, Additional history exists DTaP/Tdap/Td Vaccine (8 - Td or Tdap) 08/07/2028 08/07/2018, 09/14/2005, 08/20/1998, Additional history exists Hepatitis B Screening Completed 01/25/1994 , 1993, 1993 HPV Vaccines Completed 06/29/2010, 07/2009, 09/24/2009 [place] [address] CHOICE [facility] P[place] [address] Care Teams Wagon Winder Relationship Specialty Start Date End Date Igor Veloz MD [address] [facility] [facility] [address] [place] [address] PCP - General 07/28/18
--- OUTSIDE RECORDS SUMMARY | 2024-12-25 12:51 | XMS_ITS | Patient Health Record ---
Author Organization [facility] [place] ([address]) Address [address] [place] [address] Care Team Providers Care Cnc Wood Lathe Operator Name Role Phone Igor Veloz MD Primary Care Provider UnavailDavi Way Unavailable [phone] Rodriguez Coto Unavailable [phone] Leatha Beltran Unavailable [phone] Allergies Allergen (clinical drug ingredient) Drug/Non Drug Allergy documented on EMR Reaction Allergy Type Onset Date Status PEDIAZOLE (uncoded) Rash Allergy Active PROVENTIL REPETABS (uncoded) Vomiting Allergy Active SEPTRA (uncoded) Rash Allergy Act gladys VANTIN (uncoded) Seizures Allergy Act gladys amoxicillin Amoxicillin Rash Drug Allergy Act gladys montelukast Singulair Depressive symptoms Drug Allergy Active Reason For Referral Reason Restriction noted on spirometry and PFT with PulmOne device. Diagnosis 1 Moderate persistent asthma, uncomplicated (J45.40) Referral Organization [facility] Referring Provider First Name Leatha Referring Provider Last Name Ruby Referring Provider Speciality Allergy/Im munology Referred Provider Judith Mercer Referred Provider Specialty Pulmonary [place] Referral Priority Routine Medications Medication SIG (Take, Route, Frequency, Duration) Notes Start Date End Date Status NASAL WASHES N/A as directed intranasally as needed Active Trelegy Ellipta 100-62.5-25 MCG/ACT 1 puff Inhalation Once a day; Duration: 90 days Active Advair Diskus 500 MCG-50 MCG INHALE 1 DOSE BY MOUTH TWICE DAILY; Duration: 90 *Please review and pick correct strength-formulat ion from Surphace options. If intended option is not shown, discontinue and re-order from Quick Search* Not-Taking Nystatin 733589 UNIT/ML 4 ml orally 4 times a day; Duration: 7 day(s) 2021 Not-Taking PROAIR HFA CFC free 90 mcg/inh 2 puff(s) inhaled QID, prn Active FLUTICASONE NASAL 50 mcg/inh 1 spray(s) intranasally Twice a day Active Strata ctx 06/19/2024 Active Fluticasone Propionate 50 MCG/ACT 1 spray(s) intranasally BID Not-Taking Breztri Aerosphere 160 MCG-4.8 MCG-9 MCG/INH 2 PUFF(S) INHALED 2 TIMES A DAY; Duration: 30 DAYS *Please review and pick correct strength-formulat ion from Surphace options. If intended option is not shown, discontinue and re-order from Quick Search* 08/01/2023 Not-Taking Trelegy Ellipta 200 MCG-62.5 MCG-25 MCG/INH 1 PUFF(S) INHALED ONCE A DAY; Duration: 90 DAYS *Please review and pick correct strength-formulat ion from Surphace options. If intended option is not shown, discontinue and re-order from Quick Search* Not-Taking Albuterol Sulfate HFA 108 (90 Base) MCG/ACT 1 puff as needed Inhalation every 4 hrs Active Trelegy Ellipta 100-62.5-25 MCG/ACT INHALE 1 PUFF ONCE DAILY FOR 90 DAYS; Duration: 90 Active Lexapro 06/19/2024 Active Abilify 06/19/2024 Active Immunizations Vaccine Route Administration Date Status Comme nts NOC Influenza-Fluzone Unknown 01/28/2011 Administered NOC Influenza Flu Zone IM Intramuscular 12/22/2013 Adminis tered FluZone Quadrivalent Unknown 12/01/2014 Administered FluZone Quadrivalent Unknown 12/29/2016 Administered Pneumovax 23 IM Intramuscular 12/07/2016 Administered NOC Fluzone Quadrivalent Unknown 03/04/2018 Refused Flucelvax Unknown 12/03/2018 Refused Flucelvax Unknown 03/13/2019 Refused NOC Flucelevax Quadrivalent Unknown 11/21/2019 Administered Covid 19 ([facility] [employer]) Unknown 05/18/2020 Administered Covid 19 (Pfizer) Unknown 06/08/2020 Administered Social History Tobacco Use: Social History Observation Description Date Details (start date - stop date) Never Smoker NA - NA Sex Assigned At : Social History Observation Description Sex Assigned At Male Tobacco Control (Standard) Question Answer Notes Tobacco use: Nonsmoker AUDIT-C (Standard) Question Answer Notes Did you have a drink contain ing alcohol in the past year? Yes How often did you have a dri nk containing alcohol in the past year? 2 to 4 times a month (2 points) How many drinks did you have on a typical day when you were drinking in the past year? 1 or 2 drinks (0 point) How often did you have six o r more drinks on one occasion in the past year? Never (0 point) Points 2 Interpretation Negative Problems Problem Type SNOMED Code ICD Code Onset Dates Problem Status W/U Status Risk Notes Problem Tachycardia (5748072) Tachycardia, unspecified (R00.0) Active confirmed Problem Abnormal weight gain (643728177) Abnormal weight gain (R63.5) Active confirmed Problem Allergy to sulfonamides (86937668) Allergy status to sulfonamides status (Z88.2) Active confirmed Problem Allergic rhinitis caused by pollen (disorder) (55877454) Allergic rhinitis due to pollen (J30.1) Active confirmed Problem Allergic rhinitis caused by animal hair and dander (702137020791479) Allergic rhinitis due to animal (cat) (dog) hair and dander (J30.81) Active confirmed Problem Allergic rhinitis (05921075) Other allergic rhinitis (J30.89) Active confirmed Problem Uncomplicated moderate persistent asthma (645342915) Moderate persistent asthma, uncomplicated (J45.40) Active confirmed Problem Chronic allergic conjunctivitis (33818613) Other chronic allergic conjunctivitis (H10.45) Active confirmed Problem Allergy to penicillin (66757676) Allergy status to penicillin (Z88.0) Active confirmed Vital Signs Blood pressure diastolic 86 mm Hg 08/20/2024 Oximetry 96 % 08/20/2024 Height 71.25 in 08/20/2024 Blood pressure systolic 136 mm Hg 08/20/2024 Weight 209.2 lbs 08/20/2024 BMI 28.97 kg/m2 08/20/2024 Encounters Encounter Location Date Provider Diagnosis MIGUEL Cardoza [address] [place], [place] [id number] 08/20/2024 Leatha Ewafreddy Moderate persistent asthma, uncomplicated J45.40 ; Allergic rhinitis due to pollen J30.1 ; Other chronic allergic conjunctivitis H10.45 ; Allergic rhinitis due to animal (cat) (dog) hair and dander J30.81 ; Other allergic rhinitis J30.89 and Elevated blood-pressure reading, without diagnosis of hypertension R03.[address] [address] 06/19/2024 Leathalyla Mcneilfreddy Moderate persistent asthma, uncomplicated J45.40 ; Allergic rhinitis due to pollen J30.1 ; Other chronic allergic conjunctivitis H10.45 ; Allergic rhinitis due to animal (cat) (dog) hair and dander J30.81 ; Other allergic rhinitis J30.89 and Elevated blood-pressure reading, without diagnosis of hypertension R03.[address] [address] 01/02/2024 Rodriguez Coto Moderate persistent asthma, uncomplicated J45.40 ; Allergic rhinitis due to pollen J30.1 ; Other chronic allergic conjunctivitis H10.45 ; Allergic rhinitis due to animal (cat) (dog) hair and dander J30.81 and Other allergic rhinitis J30.[address] [address] 07/17/2024 Davi Mccormick Cough, unspecified R 05.9 ; Shortness of breath R06.02 ; Wheezing R06.2 and Abnormal results of pulmonary function studies R94.[address] [address] 12/10/2024 Davi Mccormick [address] [address] 04/20/2024 Davi Mccormick Assessments Encounter Date Diagnosis (ICD Code) Assessment Notes Treatment Notes Treatment Clinical Notes Section Notes 01/02/2024 Allergic rhinitis due to pollen (ICD-10 - [...] increasing Flonase to BID if symptoms increase 01/02/2024 Moderate persistent asthma, uncomplicated (ICD-10 - J45.40) [...] using ZHANG prior to Taekwondo with benefit 06/19/2024 Allergic rhinitis due to pollen (ICD-10 - J30.1) Sonido clearly suffers from atopic disease based upon history and our previous skin testing, and he is currently doing well on our recommended treatment plan. Continue current medication regimen, prn nasal washes and allergen-specifi c avoidance measures. He completed 4+ years of monthly maintenance SCIT in April 2017. Consider restarting SCIT if symptoms worsen, no complaints today 06/19/2024 Moderate persistent asthma, uncomplicated (ICD-10 - J45.40) - Continues doing well on low-dose Trelegy. No interval lower airway symptoms. - Previously screened for biologics with normal IgE and AEC, excluding him from most biologic treatment options. No indicated at this time, ACT is 25. No interval ZHANG, antibiotic or steroid use. - Given continued restricted seen on spirometry and clear difference between subjective and objective date, previously referred to Dr. Cleveland but has yet to go. Given this, will plan to obtain baseline PFT. Consider pulm evaluation based on results. Sonido is needing scheduled for PFT, we discussed today. - If symptoms worsen, consider Tezspire - Encouraged ZHANG use for his cough and dyspnea prn. - Follow-up in 3 months for further evaluation and management and as-scheduled for PFT 07/17/2024 Shortness of breath (ICD-10 - R06.02) 07/17/2024 Cough, unspecified (ICD-10 - R05.9) 08/20/2024 Allergic rhinitis due to pollen (ICD-10 - J30.1) Sonido clearly suffers from atopic disease based upon history and our previous skin testing, and he is currently doing well on our recommended treatment plan. Continue current medication regimen, prn nasal washes and allergen-specifi c avoidance measures. He completed 4+ years of monthly maintenance SCIT in April 2017. Consider restarting SCIT if symptoms worsen, no complaints today 08/20/2024 Moderate persistent asthma, uncomplicated (ICD-10 - J45.40) - Continues doing well on low-dose Trelegy. No interval lower airway symptoms. - Previously screened for biologics with normal IgE and AEC, excluding him from most biologic treatment options. No indicated at this time, ACT is 25. No interval ZHANG, antibiotic or steroid use. - Given continued restriction seen on spirometry and clear difference between subjective and objective date, Sonido was previously referred to Dr. Cleveland but has yet to go. We obtained a baseline PFT with PulmOne Minibox, which again showed evidence of restriction. I highly recommend pulmonary evalution. Updated referral sent to Dr. Mercer and her team at [facility]. Sonido voiced undertanding. - If symptoms worsen, consider Tezspire - Encouraged ZHANG use for his cough and dyspnea prn. - Follow-up in 3-4 months for further evaluation and management 08/20/2024 Other chronic allergic conjunctivitis (ICD-10 - H10.45) Continue allergen avoidance measures and oral/nasal medications. Also consider adding intraocular antihistamine/ma st cell stabilizer, PRN for refractory symptoms 07/17/2024 Wheezing (ICD-10 - R06.2) 06/19/2024 Other chronic allergic conjunctivitis (ICD-10 - H10.45) Continue allergen avoidance measures and oral/nasal medications. Also consider adding intraocular antihistamine/ma st cell stabilizer, PRN for refractory symptoms 01/02/2024 Other chronic allergic conjunctivitis (ICD-10 - H10.45) Continue allergen avoidance measures and oral/nasal medications. Also consider adding intraocular antihistamine/ma st cell stabilizer, PRN for refractory symptoms 01/02/2024 Allergic rhinitis due to animal (cat) (dog) hair and dander (ICD-10 - J30.81) Continue avoidance and meds 06/19/2024 Allergic rhinitis due to animal (cat) (dog) hair and dander (ICD-10 - J30.81) Continue avoidance and meds 07/17/2024 Abnormal results of pulmonary function studies (ICD-10 - R94.2) 08/20/2024 Allergic rhinitis due to animal (cat) (dog) hair and dander (ICD-10 - J30.81) Continue avoidance and meds 08/20/2024 Other allergic rhinitis (ICD-10 - J30.89) Continue avoidance and meds 06/19/2024 Other allergic rhinitis (ICD-10 - J30.89) Continue avoidance and meds 01/02/2024 Other allergic rhinitis (ICD-10 - J30.89) Continue avoidance and meds 08/20/2024 Elevated blood-pressure reading, without diagnosis of hypertension (ICD-10 - R03.0) BP elevated today without symptoms of urgency or emergency. Continue serial checks and follow-up with PCP 06/19/2024 Elevated blood-pressure reading, without diagnosis of hypertension (ICD-10 - R03.0) BP elevated today without symptoms of urgency or emergency. Continue serial checks and follow-up with PCP 04/02/2024 Other 05/14/2024 Other 12/25/2024 Other 01/02/2024 Other 06/19/2024 Other 08/20/2024 Other Plan Of Treatment Pending Test Test Name Order Date Spirometry 08/01/2023 Next Appt Details Provider Name:Leatha mosqueda, 12/25/2024 01:45:00 PM, [address] [place] [address], [phone], Insurance Providers Payer Name Payer Address Payer Phone Subscriber Number Group Number Insured Name Patient Relationship to Insured Coverage Start Date Coverage End Date Liliana NUNEZ P.OVanesa [id number] EMILI Delacruz [phone] [id number] Sonido Mcnulty Self - patient is the insured 3 Medical (General) History Medical History History ICD Code ADHD Depression Allergic rhinitis due to pollen J30.1 Moderate persistent asthma, uncomplicate d J45.40 Other chronic allergic conjunctivitis H1 0.45 Allergic rhinitis due to animal (cat) (d og) hair and dander J30.81 Other allergic rhinitis J30.89 Tachycardia, unspecified R00.0 Surgical History Surgery Date(Month/Year) PE Tubes 1993, 1995 T & A 1996 Ear Muscle Surgery 1996, 1998 Hospitalization History Reason Date(Month/Year) Seizures 07/1993
--- OUTSIDE RECORDS SUMMARY | 2024-12-25 12:51 | XMS_ITS | Clinical Summary ---
Author Organization [facility] [employer] Address [address] [place] [phone] Care Team Providers Care Taxi Cab Driver Name Role Phone Unavailable Primary Care Provider Unavailabl e Immunizations Immunization Administration Dates Next Due INFLUENZA VACCINE QUADRIVALENT 6 MOS UP PF IM INFLUENZA VACCINE TRIVALENT SPLIT VIRUS, (6 MOS UP), 0.5ML (PF), IM 11/20/2023 Social History Tobacco Use Types Packs/Day Years Used Date Smoking Tobacco: Never Assessed Sex and Gender Information Value Date Recorded Sex Assigned at Not on file Legal Sex Male 9:09 AM CDT Gender Identity Not on file Sexual Orientation Not on file Plan of Treatment Health Maintenance Due Date Last Done Comments HEPATITIS B VACCINES (1 of 3 - 19+ 3-dose series) 01/19/2012 HPV VACCINES (1 - 3-dose SCD M series) 01/19/2020 INFLUENZA VACCINE (#1) 2024 , 11/13/2022, 01/06/2019, Additional history exists DTAP/TDAP/TD VACCINES (2 - T d or Tdap) 08/07/2028 08/07/2018 Insurance [employer] OPEN ACCESS
--- NOTE | 2025-01-22 10:17 | P.PCNPFT_ITS ---
PFT Procedure Performed PFT Procedure Performed Spirometry with Pre/Post Bronchodilator Plethysmography (Lung Vol) Diffusing Cap (DLCO) Flow Vol Loop PFT Interpretation DOS: 12/24/2024 REQUESTING: Markos Bunch APRN REASON FOR TESTING: Cough PULMONARY FUNCTION TESTS Results are reliable and reproducible. Repeatability of spirometry FEV1 maneuver pre and post bronchodilator is Grade B. Hermes: GLI 2012 reference equations were used. Spirometry: The pre-bronchodilator FEV1 is 3.13 L, 70%, decreased. The pre- bronchodilator FVC is 3.71 L, 66%, decreased. The FEV1/FVC ratio is 84%, normal. After bronchodilator, the FEV1 is 3.12 L, no change. After bronchodilator, the FVC is 3.75 L, 69%, +1. The FEV1/FVC ratio is 83%. The FEF 25-75 % is 2.95 L, 65%, normal, increases by 22% after bronchodilator, 3.59 L, 840 mL increase. Lung volumes: The total lung capacity is 6.30 L, 91%. The functional reserve capacity is 2.85 L, 84%. The residual volume is 2.59 L, 157%, increased, consistent with air trapping. The RV/TLC is 41%, increased. Airway resistance is normal. Diffusion: DLCO is 23.5, 67%, mildly decreased. The DLCO/VA is 5.18, 101%, normal. Flow volume loop: The flow volume loop shows truncation on the inspiratory limb. IMPRESSION: This patient has a reduced FEV1 and FVC with a preserved ratio and without restriction, mild air trapping and a mild decrease in DLCO which corrects for alveolar volume. There is a small airways pattern with good response to bronchodilator. A reduced FEV1 with a preserved ratio is known as PRISm, preserved ratio impaired spirometry. In this condition the forced vital capacity and the FEV1 are decreased but the ratio remains normal or high. This can be associated with a higher risk of respiratory and cardiovascular problems. This can be linked to obesity, being underweight and sometimes restrictive lung conditions. Patient should be encouraged to avoid smoking, secondhand smoke, optimize body mass index and improve deconditioning. No prior studies to compare. Judith Mercer MD
== END 2024-12-24 13:32 | disposition home or self-care (01) ==
LOC: ANHPFT 13:35
PROVIDERS: PCP Internal Medicine; Visit Provider Nurse Practitioner Family
DX: J45.40 Moderate persistent asthma, uncomplicated (principal)
CPT/HCPCS: 94060; 94726; 94729